=== PATIENT | female | born 1980 | race African-American/Black ===

== ENCOUNTER 2020-09-01 05:45 | Inpatient (IN) ==
[2020-09-01] MEDS ORDERED: CeFAZolin Syr 3,000MG/30 ML 3,000 MG/30 ML SYRINGE IVPB ONE (06:20)
[2020-09-01] MEDS ORDERED: Metoclopramide 10 MG/2 ML VIAL IVP ONE (06:20)
[2020-09-01] MEDS ORDERED: Famotidine 20 MG/2 ML VIAL IVP ONE (06:20)
[2020-09-01] MEDS ORDERED: Famotidine 20 MG/2 ML VIAL IVP PRN (06:20)
[2020-09-01] MEDS ORDERED: Ondansetron 4 MG/2 ML VIAL IVP PRN ×2 (06:20→11:24)
[2020-09-01] MEDS ORDERED: Oxytocin 20 units/ LR 1000 mL 20 UNIT/1,000 ML BAG IVC ONE (06:20)
[2020-09-01] MEDS ORDERED: Ringers Solution, Lactated 1,000 ML IVC ONE (06:20)
[2020-09-01] MEDS ORDERED: Metoclopramide 10 MG/2 ML VIAL IVP PRN ×2 (06:20→11:24)
[2020-09-01] MEDS ORDERED: Oxytocin 20 units/ LR 1000 mL 20 UNIT/1,000 ML BAG IVC SCH (06:30)
[2020-09-01] MEDS ORDERED: Ringers Solution, Lactated 1,000 ML IVC SCH (06:30)
[2020-09-01 06:46] LABS: Basophils % 0.2 %; Eosinophils # 0.1 K/mcL (0.0-0.6); Hematocrit 30.9 % (35.3-44.9); Hemoglobin 10.1 g/dL (11.5-15.4); Immature Granulocytes % 0.4 % (0-4); Lymphocytes # 1.6 K/mcL (0.6-4.6); Lymphocytes % 16.5 %; Mean Corpuscular HGB Conc 32.7 g/dL (31.6-35.5); Mean Corpuscular Hemoglobin 26.7 pg (28.0-33.3); Mean Corpuscular Volume 81.7 fL (83.0-100.0); Monocytes # 0.8 K/mcL (0.0-1.3); Monocytes % 8.1 %; Platelet Count 207 K/mcL (140-400); Red Blood Count 3.78 M/mcL (3.82-4.97); Segmented Neutrophils % 73.8 %; White Blood Count 9.4 K/mcL (4.3-11.1)
[2020-09-01 06:48] LABS: Amphetamine Screen,Urine Negative ng/mL (Cutoff=1000); Barbiturate Screen,Urine Negative ng/mL (Cutoff=200)
[2020-09-01 06:49] LABS: Benzodiazepines Screen,Urine Negative ng/mL (Cutoff=300); Cannabinoid Screen,Urine Negative ng/mL (Cutoff = 50); Cocaine Screen,Urine Negative ng/mL (Cutoff= 300); Opiate Screen,Urine Negative ng/mL (Cutoff=300); Phencyclidine Screen,Urine Negative ng/mL (Cutoff=25)
[2020-09-01] MEDS ORDERED: *HR* HYDROmorphone PF 0.5 MG/0.5 ML SYRINGE IVP PRN (06:49)
[2020-09-01] MEDS ORDERED: EPHEDrine 50 MG/ML VIAL ONE (07:23)
[2020-09-01] MEDS ORDERED: *HR* Morphine Sulfate/PF 10 MG/10 ML AMPUL ONE (07:23)
[2020-09-01] MEDS ORDERED: Ringers Solution, Lactated 1,000 ML ONE (07:24)
[2020-09-01] MEDS ORDERED: *HR* FentaNYL (PF) 100 MCG/2 ML VIAL ONE (07:24)
[2020-09-01] MEDS ORDERED: Ketorolac 30 MG/ML VIAL ONE (07:31)
[2020-09-01] MEDS ORDERED: Dexamethasone 4 MG/ML VIAL ONE (07:31)
[2020-09-01] MEDS ORDERED: *HR* Oxytocin 10 UNIT/ML VIAL IM ONE (08:14)
[2020-09-01] MEDS ORDERED: Ondansetron 4 MG/2 ML VIAL ONE (09:03)
[2020-09-01] MEDS ORDERED: *HR* Promethazine 25 MG/ML VIAL ONE (09:03)
[2020-09-01] MEDS ORDERED: Sennosides 8.6 MG TABLET PO PRN (11:24)
[2020-09-01] MEDS ORDERED: Simethicone 80 MG TAB.CHEW PO PRN (11:24)
[2020-09-01] MEDS ORDERED: *HR* HYDROcodone/Acet 5/325 mg TABLET PO PRN (11:24)
[2020-09-01] MEDS ORDERED: Ibuprofen 600 MG TABLET PO PRN (11:24)
[2020-09-01] MEDS: CeFAZolin 2 GM/120 ML BAG IVPB SCH (16:46)
[2020-09-01] MEDS: Oxytocin 20 units/ LR 1000 mL 20 UNIT/1,000 ML BAG IVC SCH ×2 (18:36→21:27)
[2020-09-01] MEDS: metroNIDAZOLE 500 MG TABLET PO SCH ×2 (20:10→21:28)
[2020-09-01] MEDS: Prenatal Vit/FA 1 EACH TABLET PO SCH (21:27)
[2020-09-02] MEDS: CeFAZolin 2 GM/120 ML BAG IVPB SCH (00:19)
[2020-09-02] MEDS: Oxytocin 20 units/ LR 1000 mL 20 UNIT/1,000 ML BAG IVC SCH (04:03)
[2020-09-02 05:37] LABS: Basophils % 0.1 %; Eosinophils % 0.3 %; Hematocrit 26.5 % (35.3-44.9); Hemoglobin 8.7 g/dL (11.5-15.4); Immature Granulocytes % 0.7 % (0-4); Lymphocytes # 1.5 K/mcL (0.6-4.6); Lymphocytes % 10.2 %; Mean Corpuscular HGB Conc 32.8 g/dL (31.6-35.5); Mean Corpuscular Hemoglobin 26.7 pg (28.0-33.3); Mean Corpuscular Volume 81.3 fL (83.0-100.0); Mean Platelet Volume 10.9 fL (9.4-12.4); Monocytes # 1.3 K/mcL (0.0-1.3); Monocytes % 8.6 %; Platelet Count 208 K/mcL (140-400); Red Blood Count 3.26 M/mcL (3.82-4.97); Segmented Neutrophils % 80.1 %
[2020-09-02 05:38] LABS: Eosinophils # 0.1 K/mcL (0.0-0.6)
[2020-09-02] MEDS: metroNIDAZOLE 500 MG TABLET PO SCH (08:09)
[2020-09-02] MEDS: Prenatal Vit/FA 1 EACH TABLET PO SCH (08:10)
[2020-09-02 08:15] VITALS: BP 109/68
== END 2020-09-02 14:46 | disposition home or self-care (01) | DRG 539 ==
LOC: 1NENULAB 05:55 → 1NENUOBS 11:20
PROVIDERS: ADMIT Obstetrics & Gynecology; ATTEND Obstetrics & Gynecology